=== PATIENT | male | born 1995 | race Caucasian/White ===

== ENCOUNTER 2019-05-23 21:06 | Emergency (ER) | payer OTHER ==
[2019-05-23 21:13] VITALS: BP 159/90
[2019-05-23] MEDS ORDERED: PROPARACAINE 0.5% OPHTH DROPS 15 ML EACHEYE STA (21:23)
[2019-05-23] MEDS ORDERED: ERYTHROMYCIN OPHTH OINT 1 GM TUBE RIGHTEYE STA (21:31)
--- NOTE | 2019-05-23 21:33 | ED Physician Documentation ---
PD HPI OPHTHO - Stated complaint Stated Complaint: EYE INJURY - Chief complaint Chief Complaint: Heent - History obtained from History obtained from: Patient - History of Present Illness Timing - onset: Last night (He has had right eye irritation since late afternoon yesterday and it was crusted shut this morning. Vision is blurry. He does not wear contacts. He thinks he might have splashed some hot oil in there while cooking.) Review of Systems Constitutional: reports: Reviewed and negative Eyes: reports: Loss of vision, Discharge, Irritation. denies: Decreased vision, Photophobia PD PAST MEDICAL HISTORY - Present Medications Home Medications: Ambulatory Orders Medication Instructions Recorded Confirmed Erythromycin Base [Erythromycin 1 appful OP 5XD 7 Days #1 oint...g. 05/23/19 Ophthalmic Ointment] - Allergies Allergies/Adverse Reactions: Allergies Allergy/AdvReac Type Severity Reaction Status Date / Time No Known Drug Allergies Allergy Verified 05/23/19 21:09 PD ED PE NORMAL - Vitals Vital signs reviewed: Yes - General General: Alert and oriented X 3, No acute distress - HEENT HEENT: PERRL, EOMI, Other (Right eye conjunctivitis, no fluorescein uptake, globes are soft) - Neck Neck: Supple, no meningeal sign, No bony TTP - Derm Derm: Normal color, No rash - Neuro Neuro: Alert and oriented X 3, Normal speech Results - Vitals Vitals: Vital Signs - 24 hr 05/23/19 21:09 Temperature 36.8 C Heart Rate 103 H Respiratory 17 Rate Blood Pressure 159/90 H O2 Saturation 100 Departure - Departure Disposition: 01 Home, Self Care Clinical Impression: Conjunctivitis Qualifiers: Conjunctivitis type: acute Acute conjunctivitis type: unspecified Laterality: right Qualified Code(s): H10.31 - Unspecified acute conjunctivitis, right eye Condition: Good Record reviewed to determine appropriate education?: Yes Instructions: ED Conjunctivitis Nonspecific Prescriptions: Erythromycin Base [Erythromycin Ophthalmic Ointment] 1 appful OP 5XD 7 Days #1 oint...g. Comments: [place] if [place] better, return for new or worsening symptoms. Your blood pressure was elevated today on check into the emergency department. This does not mean that you have hypertension, it is a common phenomenon to come to the emergency department and have elevated blood pressure. I recommend that you see your primary care physician within the week to have it rechecked when you are feeling better.
== END 2019-05-23 21:38 | disposition home or self-care (01) ==
LOC: ED 21:06
DX: H10.31 Unspecified acute conjunctivitis, right eye (principal); R03.0 Elevated blood-pressure reading, without diagnosis of hypertension
CPT/HCPCS: 99282; 99284; J3490

== ENCOUNTER 2019-09-17 18:10 | Emergency (ER) | payer OTHER ==
[2019-09-17 18:25] VITALS: BP 155/102
[2019-09-17] MEDS: LIDOCAINE 2%-EPI 1:100000 20 ML MDV SUBQ STA (18:53)
--- NOTE | 2019-09-17 19:03 | ED Physician Documentation ---
History of Present Illness - Stated complaint Stated Complaint: CYST - LOWER BACK - Chief complaint Chief Complaint: General - History obtained from History obtained from: Patient - History of Present Illness Timing: How many days ago (4-5) Pain level max: 4 Pain level now: 3 - Additonal information Additional information: Patient states that he noticed a cyst near the tailbone a few days ago. States his popped it at home. There was drainage and now it has reaccumulated. Nothing makes it better or worse. No fevers. No trauma. Review of Systems Constitutional: denies: Fever, Chills GI: denies: Vomiting, Diarrhea Skin: denies: Rash Musculoskeletal: denies: Neck pain Neurologic: denies: Focal weakness, Numbness, Headache PD PAST MEDICAL HISTORY - Past Medical History Past Medical History: No - Past Surgical History Past Surgical History: No - Present Medications Home Medications: Ambulatory Orders Medication Instructions Recorded Confirmed Cephalexin [Keflex] 500 mg PO Q6H #28 capsule 09/17/19 Omeprazole 10 mg PO DAILY 09/17/19 09/17/19 Sulfamethox/Trimeth 800/160 1 each PO BID #14 tablet 09/17/19 [Bactrim Ds 800/160] - Allergies Allergies/Adverse Reactions: Allergies Allergy/AdvReac Type Severity Reaction Status Date / Time No Known Drug Allergies Allergy Verified 09/17/19 18:20 - Social History Does the pt smoke?: Yes Smoking Status: Current every day smoker Does the pt drink ETOH?: Yes Does the pt have substance abuse?: No - Immunizations Immunizations are current?: Yes PD ED PE NORMAL - Vitals Vital signs reviewed: Yes - General General: Alert and oriented X 3, No acute distress - HEENT HEENT: Moist mucous membranes - Neck Neck: Supple, no meningeal sign - Derm Derm: Warm and dry - Extremities Extremities: Other (1 x 2 cm pilonidal cyst. Erythematous. Fluctuant.) - Neuro Neuro: Alert and oriented X 3 Results - Vitals Vitals: Vital Signs - 24 hr 09/17/19 18:22 Temperature 36.8 C Heart Rate 102 H Respiratory 17 Rate Blood Pressure 155/102 H O2 Saturation 97 Oxygen O2 Source Room air Procedures - Abscess I&D (location) Pilonidal cyst Preparation: Alcohol, Lidocaine 2 %, With epi Incision: Incised with scalpel, Purulent drainage Other: Pt tolerated well, Dressing applied PD MEDICAL DECISION MAKING - ED course Complexity details: considered differential, d/w patient ED course: Small pilonidal cyst. Drained. Tolerated well. Will place on antibiotics for home. Patient counseled regarding signs and symptoms for which I believe and ur gent re-evaluation would be necessary. Patient with good understanding of and agreement to plan and is comfortable going home at this time This document was made in part using voice recognition software. While efforts are made to proofread this document, sound alike and grammatical errors may occur. Departure - Departure Disposition: 01 Home, Self Care Clinical Impression: Pilonidal cyst with abscess Condition: Good Instructions: ED Cyst Pilonidal Infected IandD Follow-Up: TRINIDAD RITTER DO [Primary Care Provider] - Within 3 Days Prescriptions: Cephalexin [Keflex] 500 mg PO Q6H #28 capsule Sulfamethox/Trimeth 800/160 [Bactrim Ds 800/160] 1 each PO BID #14 tablet Comments: Take all antibiotics until gone. Return if you worsen. Follow-up with your doctor for further care. Discharge Date/Time: 09/17/19 19:18
[2019-09-17] MEDS: SULFAMETH/TRIMETH DS 800/160 MG TABLET PO STA (19:08)
[2019-09-17] MEDS: cephALEXin 250 MG CAPSULE PO STA (19:08)
== END 2019-09-17 19:18 | disposition home or self-care (01) ==
LOC: ED 18:10
DX: L05.01 Pilonidal cyst with abscess (principal)
CPT/HCPCS: 10080